=== PATIENT | female | born 1980 | race Caucasian/White ===

== ENCOUNTER 2021-12-24 16:30 | Emergency (ER) | payer MEDICAID, SELFPAY ==
--- NOTE | 2021-12-24 16:42 | ED.ALCOHOL ---
HPI - Alcohol General Chief Complaint: ETOH/Substance Use Stated Complaint: ETOH, HEROIN USE Time Seen by Provider: 12/24/21 16:38 Source: patient and EMS Mode of arrival: EMS Limitations: no limitations History of Present Illness HPI narrative: 41-year-old female brought in by ambulance for acute alcohol intoxication. A bystandard called 911 because she was laying on the ground. Patient states shes fine and she wants to leave. Admits to consuming 1 pint of vodka today. Denies drug use. Denies SI/HI. Denies visual auditory and tactile hallucinations. Answering questions appropriately and telling me she wants to leave. Denies chest pain, shortness of breath, nausea, vomiting, abodminal pain, headache, dizziness, vision changes, weakness, recent trauma. Not on blood thinners. MD complaint: alcohol intoxication Last drink: Just prior to admission Amount of alcohol consumed: 1 pt of vodka Chronic alcohol use: Yes Previous visits for alcohol intoxication: No Recent trauma: No Associated symptoms: denies other symptoms Treatments prior to arrival: none Related Data Allergies Allergy/AdvReac Type Severity Reaction Status Date / Time lactose [LACTOSE] Allergy Unknown UNK Unverified 08/01/20 16:49 Review of Systems Review of Systems: Constitutional : No Fever, No Chills ENT/Mouth : No sore throat, No Rhinorrhea Eyes: No Eye Pain, No Swelling, No Redness Cardiovascular : No Chest Pain, No SOB Respiratory : No Cough, No Sputum Gastrointestinal : No Nausea, No Vomiting, No Diarrhea, No abdominal Pain Genitourinary : No Dysuria, No Hematuria Musculoskeletal : No joint pain, No Myalgias, No Joint Swelling Skin : No Skin Lesions, No rash Neuro : No Weakness, No Numbness Psych : No Anxiety, No Depression, No SI/HI/AH/VH Heme/Lymph: No Bruising, No Bleeding Endocrine : No Polyuria, No Polydipsia All other systems reviewed and are negative Yes all other systems are reviewed and are negative [facility] Past Medical History Attestation statement: The following information was validated with the patient. Source: old records reviewed and nursing notes reviewed Social History Social History Advance Directives: No Advance Directives Information Provided: No Physical Exam Vital Signs: Vital Signs: Last Vital Signs Temp 98.3 F 12/24/21 20:00 Pulse 110 H 12/24/21 20:00 Resp 18 12/24/21 20:00 BP 130/84 12/24/21 20:00 Pulse Ox 96 12/24/21 20:00 BMI result Body Mass Index 19.3 VSS- initially patient agitated likley why patient is tachycardic. Appearance: Alert.? Oriented X3.? No acute distress.? Head: Normocephalic, atraumatic, no step-offs or deformities Eyes: Pupils equal, round and reactive to light.? ENT: Pharynx normal.? Neck: Normal inspection.? Neck supple.? CVS: Normal heart rate and rhythm.? Pulses normal.? Respiratory: No respiratory distress.? Breath sounds normal.? Abdomen: Soft and nontender.? Skin: Skin warm and dry.? Normal skin color.? Normal skin turgor.? Extremities: No lower extremity edema.? No calf ttp. 5/5 strength to bilateral upper and lower extremities Back: No midline tenderness, no C-spine tenderness, full range of motion, no CVA tenderness bilaterally Neuro: Oriented X 3.? No motor deficit.? No sensory deficit. CN 2-12 intact Course Reevaluation(s) Reevaluation #1: Patient agitated and screaming out that she wants to leave however patient is intoxicated, screaming, causing of pain. She is ambulating with an unsteady gait. She can not safely be discharged at this time . Time: 18:33 Reevaluation #2: Patient did not want labs done that is why they were not obtained. She did not pee for us said it wasn't necessary. She says she was fine and does not need to be here. Her ethanol was elevated, consistent with her presentation. COVID negative. At this time patient is much more calm, ambulating with a steady gait. Patient has called a friend who will be giving patient a ride home. At this time I feel comfortable with discharge. Time: 20:55 MDM - Alcohol MDM Narrative Medical decision making narrative: 41 yo f no pmhx BIBA found sitting on the steps, cait called 911 for an intoxicated female. Patient admits to dirnking one pt of vodka. No other complaints at this time. Physical exam significant for an intoxicated female, disheveled with feces and urine covering her pants. RRR. Lungs clear. Abdomen soft nontender nondistended. Neuro nonfocal. A&O X3. Plan- TERRELL, COVID, basic labs, ethanol. Medical Records Attestation: I reviewed the patient's medical records. Lab Data Attestation: I reviewed the patient's lab results. Labs: Lab Results 12/24/21 12/24/21 Range/Units 18:05 18:08 Ethyl Alcohol 235 mg/dL COVID-19 (JOSE) Negative (Negative) COVID-19 Clin Com See Note Critical Care Time Critical Care Time Critical Care Time: No Discharge Plan Discharge Clinical Impression: Alcoholic intoxication Patient Disposition: Home, Self-Care Instructions: Alcohol Intoxication (ED), Abuse of Alcohol (ED) Additional Instructions: Take your medications as prescribed. If you were prescribed antibiotics today, it is important that you take your medication to their entirety, do not skip any doses, do not finish them early. Follow-up with your primary care provider this week. Return to the emergency department with new or worsening symptoms. In case of emergency call 911 Referrals: Physician,Melo J [Primary Care Provider] - 2 days
[2021-12-24 16:49] VITALS: BP 133/68; BP 138/72; PULSE 81; PULSE 88; RESP 16; O2SAT 98; BMI 19.3
[2021-12-24 18:25] LABS: Ethanol 235 mg/dL
[2021-12-24 18:29] LABS: COVID-19 Test Negative (Negative)
[2021-12-24 20:00] VITALS: BP 130/84; PULSE 110; RESP 18; TEMP 36.8; O2SAT 96
--- NOTE | 2021-12-24 20:06 | MHC.RECOVSUP ---
? Reason for consult: Recovery Support o ? ? ?Current location: ED-10? o ? ? ?Identified substance use concern: Alcohol - Support ? ?Intervention: o Community resources provided o Harm reduction discussion ? Additional information:?I was able to connect with Pt. and suggest treatment. Pt. was aggravated and annoyed with being in the ED. We were able to review harm reduction strategies and coping skills. Community resources were given.
== END 2021-12-24 21:01 | disposition home or self-care (01) ==
PROVIDERS: Physician Assistant; Emergency Provider Internal Medicine
DX: F10.920 Alcohol use, unspecified with intoxication, uncomplicated (principal); Y90.7 Blood alcohol level of 200-239 mg/100 ml; R45.1 Restlessness and agitation; R00.0 Tachycardia, unspecified; Z20.822 Contact with and (suspected) exposure to COVID-19
CPT/HCPCS: 36415; 82077; 87635; 99283; 99284